=== PATIENT | female | born 1975 | race Caucasian/White ===

== ENCOUNTER 2017-07-16 16:43 | Outpatient (CLI) | payer OTHER ==
[2017-07-16] MEDS ORDERED: PRENATAL TABLE1 EAC1 PO (17:41)
== END 2017-07-17 10:18 | disposition home or self-care (01) ==
LOC: OBS/DEL 16:43
DX: O60.02 Preterm labor without delivery, second trimester (principal); Z34.82 Encounter for supervision of other normal pregnancy, second trimester

== ENCOUNTER 2017-08-11 11:54 | Inpatient (IN) | payer OTHER ==
[~2017-08-11] VITALS: Ht 162.6 cm; Wt 63.5 kg
[~2017-08-11 11:54] MED LIST: PRENATAL TABLE1 EAC1 PO
== END 2017-09-21 10:13 | disposition home or self-care (01) | DRG 778 ==
LOC: OB/GYN 11:54 → LDR 11:54 → OB/GYN 08-12 08:46
PROC: 4A1HXCZ Monitoring of Products of Conception, Cardiac Rate, External Approach (ICD-10-PCS; principal; 2017-08-11)
PROC: BY4FZZZ Ultrasonography of Third Trimester, Single Fetus (ICD-10-PCS; 2017-08-11)
PROC: BU4CZZZ Ultrasonography of Uterus and Ovaries (ICD-10-PCS; 2017-08-11)
PROC: BY4FZZZ Ultrasonography of Third Trimester, Single Fetus (ICD-10-PCS; 2017-08-21)
PROC: BU4CZZZ Ultrasonography of Uterus and Ovaries (ICD-10-PCS; 2017-08-21)
PROC: BY4FZZZ Ultrasonography of Third Trimester, Single Fetus (ICD-10-PCS; 2017-09-02)
PROC: BU4CZZZ Ultrasonography of Uterus and Ovaries (ICD-10-PCS; 2017-09-02)
PROC: BY4FZZZ Ultrasonography of Third Trimester, Single Fetus (ICD-10-PCS; 2017-09-06)
PROC: BU4CZZZ Ultrasonography of Uterus and Ovaries (ICD-10-PCS; 2017-09-06)
DX: O60.03 Preterm labor without delivery, third trimester (principal); O26.873 Cervical shortening, third trimester; Z3A.28 28 weeks gestation of pregnancy

== ENCOUNTER 2017-10-08 14:31 | Inpatient (IN) | payer OTHER ==
[~2017-10-08] VITALS: Ht 162.6 cm; Wt 65.8 kg
[2017-10-12] MEDS ORDERED: PRENATABS RX T1 EACH PO (05:51)
[2017-10-12] MEDS ORDERED: OMEPRAZOLE10 MG PO (05:52)
[2017-10-12] MEDS ORDERED: MIRALAX17 GM PO (05:52)
== END 2017-10-14 12:06 | disposition home or self-care (01) | DRG 775 ==
LOC: LDR 10-12 05:11 → OB/GYN 10-12 13:01 → LDR 10-12 14:20 → OB/GYN 10-14 12:06
PROC: 0HQ9XZZ Repair Perineum Skin, External Approach (ICD-10-PCS; principal; 2017-10-12)
PROC: 10E0XZZ Delivery of Products of Conception, External Approach (ICD-10-PCS; 2017-10-12)
PROC: 4A1HXCZ Monitoring of Products of Conception, Cardiac Rate, External Approach (ICD-10-PCS; 2017-10-12)
DX: O70.0 First degree perineal laceration during delivery (principal); Z3A.38 38 weeks gestation of pregnancy; Z37.0 Single live birth

== ENCOUNTER 2020-08-02 11:07 | Outpatient (CLI) | payer OTHER ==
[~2020-08-02 11:07] MED LIST changes: +MIRALAX17 GM PO; +OMEPRAZOLE10 MG PO; +PRENATABS RX T1 EACH PO
== END 2020-08-02 11:15 | disposition home or self-care (01) ==
LOC: SONOGRAMA 11:07
PROVIDERS: ATTEND Pathology Anatomic Pathology & Clinical Pathology
DX: E04.2 Nontoxic multinodular goiter (principal)